=== PATIENT | male | born 1950 | race Caucasian/White ===

== ENCOUNTER 2017-11-30 18:53 | Inpatient (IN) | payer MEDICARE, BC ==
[2017-11-30] VITALS (7 sets, daily range): BP systolic 84–168; BP diastolic 55–100
[~2017-11-30] VITALS: Ht 175.3 cm; Wt 81.4 kg
[~2017-11-30 18:53] MED LIST: enoxaparin 100mg/ml syringe ONE; enoxaparin 30mg/0.3ml syringe ONE; heparin 10,000 units/1 ML INJ ONE; heparin, porcine/D5W 25,000 units/250ml premix IV ONE; methylPREDNISolone sod succ 125mg/2ml vial ONE; nitroGLYCERIN in D5W 50mg/250ml (Tridil) infusion IV ONE
[2017-11-30] MEDS ORDERED: aspirin 81mg tab.chew PO ONE ×3 (19:05→19:10)
[2017-11-30] MEDS ORDERED: ondansetron/PF 4mg/2ml inj IV ONE (19:05)
[2017-11-30] MEDS ORDERED: normal saline 500ml IV soln 1,000 ML IV ONE (19:05)
[2017-11-30] MEDS ORDERED: heparin 10,000 units/1 ML INJ IV PRN ×2 (19:10→19:22)
[2017-11-30] MEDS ORDERED: heparin 10,000 units/1 ML INJ IV ONE (19:10)
[2017-11-30 19:18] LABS: BASOPHILS % (AUTO) 0.3 % (0-1); EOSINOPHILS # (AUTO) 0.3 X10'3 (0-0.9); EOSINOPHILS % (AUTO) 2.2 % (0-6); HEMATOCRIT 43.9 % (42.0-52.0); HEMOGLOBIN 14.8 g/dl (14.0-17.9); LYMPHOCYTES # (AUTO) 3.1 X10'3 (1.1-4.8); LYMPHOCYTES % (AUTO) 23.3 % (21-51); MEAN CORPUSCULAR HEMOGLOBIN 31.2 PG (27.0-31.0); MEAN CORPUSCULAR HGB CONC 33.8 % (33.0-36.5); MEAN CORPUSCULAR VOLUME 92.2 FL (78-98); MEAN PLATELET VOLUME 7.4 FL (7.4-10.4); MONOCYTES # (AUTO) 1.2 X10'3 (0-0.9); MONOCYTES % (AUTO) 9.1 % (2-12); NEUTROPHILS # (AUTO) 8.6 X10'3 (1.8-7.7); NEUTROPHILS % (AUTO) 65.1 % (42-75); PLATELET COUNT 283 X10'3 (140-440); RED BLOOD COUNT 4.75 X10'6 (4.70-6.10); RED CELL DISTRIBUTION WIDTH 13.3 % (11.5-14.5); WHITE BLOOD COUNT 13.2 X10'3 (4.5-11.0)
[2017-11-30] MEDS: nitroGLYCERIN 0.4mg SUBLingual tab SL PRN ×2 (19:26→19:30)
[2017-11-30] MEDS ORDERED: LIDOcaine 1% 30ml preserv. free vial ONE (19:29)
[2017-11-30] MEDS ORDERED: heparin 1,000unit/ml 10ml vial 10 ML ONE (19:29)
[2017-11-30] MEDS ORDERED: iohexol 350MG/ML 100ml bottle IV ONE ×2 (19:30→20:17)
[2017-11-30 19:31] LABS: PARTIAL THROMBOPLASTIN TIME 25 SECONDS (22-32)
[2017-11-30] MEDS ORDERED: ASPI-1265 PO (19:33)
[2017-11-30] MEDS ORDERED: IRBE75TA30 PO (19:33)
[2017-11-30 19:45] LABS: ALANINE AMINOTRANSFERASE 34 U/L (12-78); ALBUMIN 3.8 G/DL (3.4-5.0); ALKALINE PHOSPHATASE 85 IU/L (46-116); ANION GAP 12 (8-16); ASPARTATE AMINO TRANSFERASE 22 U/L (10-37); BILIRUBIN,TOTAL 0.4 MG/DL (0.1-1.0); BLOOD UREA NITROGEN 21 MG/DL (7-18); BUN/CREATININE RATIO 14.5 (5.4-32.0); CALCIUM 9.1 MG/DL (8.5-10.1); CHLORIDE 108 MMOL/L (99-107); CREATININE 1.45 MG/DL (0.60-1.10); GLUCOSE 161 MG/DL (70-104); MAGNESIUM 2.3 MG/DL (1.5-2.4); POTASSIUM 4.1 MMOL/L (3.5-5.1); SODIUM 144 MMOL/L (135-145); TOTAL CARBON DIOXIDE 23.9 MMOL/L (24-32); TOTAL PROTEIN 7.7 G/DL (6.4-8.2); eGFR 48 ML/MIN
[2017-11-30] MEDS ORDERED: midazolam 2 mg/2 ml injection ONE ×2 (20:03→20:33)
[2017-11-30] MEDS ORDERED: fentaNYL/PF 50MCG/1 ML 2ML syringe ONE (20:14)
[2017-11-30] MEDS ORDERED: ticagrelor 90mg tablet ONE (20:49)
[2017-11-30] MEDS ORDERED: ondansetron/PF 4mg/2ml inj ONE (21:36)
[2017-11-30] MEDS ORDERED: atorvastatin 20mg tablet PO SCH (22:29)
[2017-11-30] MEDS ORDERED: ondansetron/PF 4mg/2ml inj IV PRN ×2 (22:30→23:45)
[2017-11-30] MEDS ORDERED: HYDROcodone/acetaminophen 5mg/325mg tablet PO PRN (22:30)
[2017-11-30] MEDS ORDERED: HYDROcodone/acetaminophen 10/325mg tab PO PRN (22:30)
[2017-11-30] MEDS ORDERED: proCHLORperazine 10 MG/2 ml inj IV PRN (22:30)
[2017-11-30] MEDS ORDERED: OXAZEpam 15mg capsule PO PRN (22:30)
[2017-11-30] MEDS ORDERED: acetaminophen 325mg tablet PO PRN ×2 (23:45)
[2017-11-30] MEDS ORDERED: morphine 4 MG/ML inj SYRINge IV PRN (23:45)
[2017-12-01] VITALS (7 sets, daily range): BP systolic 119–147; BP diastolic 67–96
[2017-12-01] MEDS: famotidine 20mg tablet PO SCH ×2 (04:12→20:51)
[2017-12-01 05:14] LABS: BASOPHILS # (AUTO) 0.2 X10'3 (0-0.2); BASOPHILS % (AUTO) 1.1 % (0-1); EOSINOPHILS # (AUTO) 0.2 X10'3 (0-0.9); EOSINOPHILS % (AUTO) 1.4 % (0-6); HEMATOCRIT 38.7 % (42.0-52.0); HEMOGLOBIN 13.2 g/dl (14.0-17.9); LYMPHOCYTES # (AUTO) 0.8 X10'3 (1.1-4.8); MEAN CORPUSCULAR HEMOGLOBIN 31.5 PG (27.0-31.0); MEAN CORPUSCULAR VOLUME 92.6 FL (78-98); MEAN PLATELET VOLUME 7.4 FL (7.4-10.4); MONOCYTES # (AUTO) 0.9 X10'3 (0-0.9); MONOCYTES % (AUTO) 5.7 % (2-12); NEUTROPHILS # (AUTO) 13.5 X10'3 (1.8-7.7); NEUTROPHILS % (AUTO) 86.8 % (42-75); PLATELET COUNT 234 X10'3 (140-440); RED BLOOD COUNT 4.18 X10'6 (4.70-6.10); RED CELL DISTRIBUTION WIDTH 13.7 % (11.5-14.5); WHITE BLOOD COUNT 15.6 X10'3 (4.5-11.0)
[2017-12-01 05:52] LABS: ALBUMIN 3.2 G/DL (3.4-5.0); ANION GAP 10 (8-16); BLOOD UREA NITROGEN 17 MG/DL (7-18); BUN/CREATININE RATIO 13.6 (5.4-32.0); CALCIUM 8.5 MG/DL (8.5-10.1); CHLORIDE 109 MMOL/L (99-107); CHOL/HDL RATIO 4.6 (0.00-4.99); CHOLESTEROL 221 MG/DL (0-200); CREATININE 1.25 MG/DL (0.60-1.10); GLUCOSE 145 MG/DL (70-104); HDL CHOLESTEROL 48 MG/DL (35-60); LDL CHOLESTEROL 155 MG/DL (50-100); POTASSIUM 4.8 MMOL/L (3.5-5.1); SODIUM 143 MMOL/L (135-145); TOTAL CARBON DIOXIDE 23.8 MMOL/L (24-32); TRIGLYCERIDES 40 MG/DL (20-135); eGFR 57 ML/MIN
[2017-12-01] MEDS ORDERED: magnesium 2GM in 50ml NS 50 ML IV ONE (06:50)
[2017-12-01] MEDS ORDERED: IRBE75TA9 PO (07:59)
[2017-12-01] MEDS: ticagrelor 90mg tablet PO SCH ×2 (08:34→20:51)
[2017-12-01] MEDS: metoprolol tartrate 25mg tablet PO SCH ×2 (08:34→20:51)
[2017-12-01] MEDS: losartan 25mg tablet PO SCH (09:12)
[2017-12-01] MEDS: aspirin 81mg tablet.DR PO SCH (09:12)
[2017-12-01] MEDS ORDERED: CHOL2000 PO (18:53)
[2017-12-01] MEDS ORDERED: atorvastatin 20mg tablet PO SCH (21:00)
[2017-12-02 03:00] VITALS: BP 121/96
[2017-12-02 06:00] VITALS: BP 148/79
[2017-12-02] MEDS ORDERED: METO25TA6 PO (06:45)
[2017-12-02] MEDS ORDERED: TICA90TA PO (06:45)
[2017-12-02] MEDS ORDERED: ATOR40TA PO (06:45)
[2017-12-02] MEDS ORDERED: NITR0.4T51 SL (06:45)
[2017-12-02] MEDS: losartan 25mg tablet PO SCH (07:09)
[2017-12-02] MEDS: famotidine 20mg tablet PO SCH (07:09)
[2017-12-02] MEDS: metoprolol tartrate 25mg tablet PO SCH (07:09)
[2017-12-02] MEDS: aspirin 81mg tablet.DR PO SCH (07:09)
[2017-12-02] MEDS: ticagrelor 90mg tablet PO SCH (07:09)
[2017-12-02 09:08] LABS: BASOPHILS % (AUTO) 0.1 % (0-1); EOSINOPHILS % (AUTO) 0.1 % (0-6); HEMATOCRIT 39.3 % (42.0-52.0); HEMOGLOBIN 13.3 g/dl (14.0-17.9); LYMPHOCYTES # (AUTO) 1.5 X10'3 (1.1-4.8); LYMPHOCYTES % (AUTO) 10.4 % (21-51); MEAN CORPUSCULAR HEMOGLOBIN 31.2 PG (27.0-31.0); MEAN CORPUSCULAR HGB CONC 33.8 % (33.0-36.5); MEAN CORPUSCULAR VOLUME 92.3 FL (78-98); MEAN PLATELET VOLUME 7.6 FL (7.4-10.4); MONOCYTES # (AUTO) 1.4 X10'3 (0-0.9); MONOCYTES % (AUTO) 9.3 % (2-12); NEUTROPHILS # (AUTO) 11.6 X10'3 (1.8-7.7); NEUTROPHILS % (AUTO) 80.1 % (42-75); PLATELET COUNT 233 X10'3 (140-440); RED BLOOD COUNT 4.26 X10'6 (4.70-6.10); RED CELL DISTRIBUTION WIDTH 13.5 % (11.5-14.5); WHITE BLOOD COUNT 14.5 X10'3 (4.5-11.0)
[2017-12-02 09:18] LABS: ANION GAP 11 (8-16); BLOOD UREA NITROGEN 14 MG/DL (7-18); BUN/CREATININE RATIO 11.1 (5.4-32.0); CALCIUM 8.6 MG/DL (8.5-10.1); CHLORIDE 106 MMOL/L (99-107); CREATININE 1.26 MG/DL (0.60-1.10); GLUCOSE 130 MG/DL (70-104); POTASSIUM 3.7 MMOL/L (3.5-5.1); SODIUM 140 MMOL/L (135-145); TOTAL CARBON DIOXIDE 22.9 MMOL/L (24-32); eGFR 57 ML/MIN
== END 2017-12-02 10:40 | disposition home or self-care (01) | DRG 246 ==
LOC: ER 18:53 → PCU 3S 22:11
PROVIDERS: ADMIT Internal Medicine Interventional Cardiology; ATTEND Internal Medicine Interventional Cardiology
PROC: 027034Z Dilation of Coronary Artery, One Artery with Drug-eluting Intraluminal Device, Percutaneous Approach (ICD-10-PCS; principal; 2017-11-30)
PROC: 4A023N7 Measurement of Cardiac Sampling and Pressure, Left Heart, Percutaneous Approach (ICD-10-PCS; 2017-11-30)
PROC: B2111ZZ Fluoroscopy of Multiple Coronary Arteries using Low Osmolar Contrast (ICD-10-PCS; 2017-11-30)
PROC: B2151ZZ Fluoroscopy of Left Heart using Low Osmolar Contrast (ICD-10-PCS; 2017-11-30)
PROC: B2131ZZ Fluoroscopy of Multiple Coronary Artery Bypass Grafts using Low Osmolar Contrast (ICD-10-PCS; 2017-11-30)
DX: I21.19 ST elevation (STEMI) myocardial infarction involving other coronary artery of inferior wall (principal); I50.31 Acute diastolic (congestive) heart failure; I47.2 Ventricular tachycardia; I13.0 Hypertensive heart and chronic kidney disease with heart failure and stage 1 through stage 4 chronic kidney disease, or unspecified chronic kidney disease; I25.10 Atherosclerotic heart disease of native coronary artery without angina pectoris; E78.5 Hyperlipidemia, unspecified; J45.909 Unspecified asthma, uncomplicated; N18.9 Chronic kidney disease, unspecified; J98.6 Disorders of diaphragm; F12.90 Cannabis use, unspecified, uncomplicated; I25.2 Old myocardial infarction; Z95.1 Presence of aortocoronary bypass graft; Z79.82 Long term (current) use of aspirin; Z79.899 Other long term (current) drug therapy; Z87.891 Personal history of nicotine dependence; Z82.49 Family history of ischemic heart disease and other diseases of the circulatory system; Z82.5 Family history of asthma and other chronic lower respiratory diseases
CPT/HCPCS: 93306; 93459; 96374; 96375; 99291; C9606; 36415; 71045; 80048; 80053; 80061; 83735; 83880; 84484; 85025; 85610; 85730; 87070; 93005; 99152; 99153; A4620; A6257; C1725; C1760; C1769; C1874; J0780; J1644; J1650; J2250; J2405; J2930; J3010; J3475; J3490; J7030; Q9967

== ENCOUNTER 2017-12-09 10:03 | Emergency (ER) | payer MEDICARE, BC ==
[~2017-12-09] VITALS: Ht 175.3 cm; Wt 80.0 kg
[~2017-12-09 10:03] MED LIST changes: +ASPI-1265 PO; +ATOR40TA PO; +CHOL2000 PO; +IRBE75TA9 PO; +METO25TA6 PO; +NITR0.4T51 SL; +TICA90TA PO; -enoxaparin 100mg/ml syringe ONE; -enoxaparin 30mg/0.3ml syringe ONE; -heparin 10,000 units/1 ML INJ ONE; -heparin, porcine/D5W 25,000 units/250ml premix IV ONE; -methylPREDNISolone sod succ 125mg/2ml vial ONE; -nitroGLYCERIN in D5W 50mg/250ml (Tridil) infusion IV ONE
[2017-12-09 10:32] LABS: BASOPHILS # (AUTO) 0.1 X10'3 (0-0.2); BASOPHILS % (AUTO) 0.6 % (0-1); EOSINOPHILS # (AUTO) 0.4 X10'3 (0-0.9); EOSINOPHILS % (AUTO) 3.8 % (0-6); HEMATOCRIT 41.1 % (42.0-52.0); HEMOGLOBIN 14.1 g/dl (14.0-17.9); LYMPHOCYTES # (AUTO) 1.6 X10'3 (1.1-4.8); LYMPHOCYTES % (AUTO) 16.8 % (21-51); MEAN CORPUSCULAR HEMOGLOBIN 31.3 PG (27.0-31.0); MEAN CORPUSCULAR HGB CONC 34.2 % (33.0-36.5); MEAN CORPUSCULAR VOLUME 91.4 FL (78-98); MEAN PLATELET VOLUME 7.2 FL (7.4-10.4); MONOCYTES % (AUTO) 10.5 % (2-12); NEUTROPHILS # (AUTO) 6.5 X10'3 (1.8-7.7); NEUTROPHILS % (AUTO) 68.3 % (42-75); PLATELET COUNT 320 X10'3 (140-440); WHITE BLOOD COUNT 9.6 X10'3 (4.5-11.0)
[2017-12-09 10:43] LABS: PARTIAL THROMBOPLASTIN TIME 28 SECONDS (22-32); PROTHROMBIN TIME 10.1 SECONDS (9.0-12.0)
[2017-12-09 10:46] LABS: ALANINE AMINOTRANSFERASE 35 U/L (12-78); ALBUMIN 3.5 G/DL (3.4-5.0); ALBUMIN/GLOBULIN RATIO 0.9 (1.1-1.5); ALKALINE PHOSPHATASE 91 IU/L (46-116); ANION GAP 8 (8-16); ASPARTATE AMINO TRANSFERASE 19 U/L (10-37); BILIRUBIN,TOTAL 0.5 MG/DL (0.1-1.0); BLOOD UREA NITROGEN 22 MG/DL (7-18); BUN/CREATININE RATIO 17.2 (5.4-32.0); CALCIUM 9.1 MG/DL (8.5-10.1); CHLORIDE 105 MMOL/L (99-107); CREATININE 1.28 MG/DL (0.60-1.10); GLUCOSE 118 MG/DL (70-104); POTASSIUM 4.3 MMOL/L (3.5-5.1); SODIUM 140 MMOL/L (135-145); TOTAL CARBON DIOXIDE 26.8 MMOL/L (24-32); TOTAL PROTEIN 7.2 G/DL (6.4-8.2); eGFR 56 ML/MIN
[2017-12-09] MEDS ORDERED: aspirin 81mg tab.chew PO ONE (11:55)
[2017-12-09 14:52] VITALS: BP 121/78
== END 2017-12-09 14:53 | disposition home or self-care (01) ==
LOC: ER 10:04
DX: R55 Syncope and collapse (principal); I95.9 Hypotension, unspecified; R42 Dizziness and giddiness; R07.9 Chest pain, unspecified; I25.10 Atherosclerotic heart disease of native coronary artery without angina pectoris; Z79.82 Long term (current) use of aspirin; Z79.899 Other long term (current) drug therapy; Z95.1 Presence of aortocoronary bypass graft
CPT/HCPCS: 36415; 71045; 80053; 84484; 85025; 85610; 85730; 93005; 99285; J7030

== ENCOUNTER 2021-07-31 12:30 | Day surgery (SDC) | payer MEDICARE, BC ==
[2021-07-31] VITALS (7 sets, daily range): BP systolic 125–138; BP diastolic 76–88
[~2021-07-31] VITALS: Ht 175.3 cm; Wt 82.8 kg
[~2021-07-31 12:30] MED LIST changes: +IRBE75TA8 PO; -IRBE75TA9 PO; +LOP25T PO; -METO25TA6 PO
[2021-07-31] MEDS ORDERED: LORazepam 0.5 MG tablet PO PRN (12:55)
[2021-07-31] MEDS ORDERED: normal saline 1,000 ML IV SCH (12:55)
[2021-07-31] MEDS ORDERED: diphenhydrAMINE 25mg capsule PO PRN (12:55)
[2021-07-31] MEDS ORDERED: ISOS30TA84 PO (13:03)
[2021-07-31] MEDS ORDERED: EVOL140P3 SQ (13:03)
[2021-07-31] MEDS ORDERED: PANT40TA54 PO (13:03)
[2021-07-31] MEDS ORDERED: METO50TA17 PO (13:03)
[2021-07-31] MEDS ORDERED: CHLO25TA10 PO (13:03)
[2021-07-31] MEDS ORDERED: POTA-188 PO (13:03)
[2021-07-31] MEDS ORDERED: LIDOcaine 1% (10mg/ml)w/preservative injection 20ml MDV ONE (14:34)
[2021-07-31] MEDS ORDERED: heparin 1,000unit/ml 10ml vial 10 ML ONE (14:34)
[2021-07-31] MEDS ORDERED: verapamil 2.5 mg/ml inj IV ONE (14:34)
[2021-07-31] MEDS ORDERED: nitroGLYCERIN-Tridil 50MG/D5W 250 ML IV ONE (14:35)
[2021-07-31] MEDS ORDERED: iohexol 350MG/ML 100ml bottle IV ONE (14:35)
[2021-07-31] MEDS ORDERED: fentaNYL/PF 50MCG/1 ML 2ML syringe ONE (15:02)
[2021-07-31] MEDS ORDERED: midazolam 1 mg/ML 2ml injection ONE (15:02)
[2021-07-31] MEDS ORDERED: iohexol 350 MG/ML 50ML vial IV ONE (15:22)
[2021-07-31] MEDS ORDERED: HYDROcodone/acetaminophen 10/325mg tab PO PRN (16:25)
[2021-07-31] MEDS ORDERED: HYDROcodone/acetaminophen 5mg/325mg tablet PO PRN (16:25)
[2021-07-31] MEDS ORDERED: OXAZEpam 15mg capsule PO PRN (16:25)
[2021-07-31] MEDS ORDERED: ondansetron/PF 4mg/2ml inj IV PRN (16:25)
[2021-07-31] MEDS ORDERED: proCHLORperazine 10 MG/2 ml inj IV PRN (16:25)
== END 2021-07-31 19:20 | disposition home or self-care (01) ==
LOC: SSTAY O 12:30
PROVIDERS: ATTEND Internal Medicine Interventional Cardiology
DX: R07.89 Other chest pain (principal); I25.7 Atherosclerosis of coronary artery bypass graft(s) and coronary artery of transplanted heart with angina pectoris; J45.909 Unspecified asthma, uncomplicated; I25.2 Old myocardial infarction; I10 Essential (primary) hypertension; E78.5 Hyperlipidemia, unspecified; I65.29 Occlusion and stenosis of unspecified carotid artery; G89.29 Other chronic pain; Z95.0 Presence of cardiac pacemaker; Z79.82 Long term (current) use of aspirin; Z79.899 Other long term (current) drug therapy; Z95.1 Presence of aortocoronary bypass graft; Z95.5 Presence of coronary angioplasty implant and graft; Z88.8 Allergy status to other drugs, medicaments and biological substances; Z87.891 Personal history of nicotine dependence
CPT/HCPCS: 93005; 93459; 99152; 99153; C1769; J1644; J2250; J3010; J3490; J7030; Q0163; Q9967; A4620; A6258

== ENCOUNTER 2022-06-05 05:41 | Inpatient (IN) | payer MEDICARE, BC ==
[2022-06-03 12:39] LABS: BASOPHILS # (AUTO) 0.1 X10'3 (0-0.2); BASOPHILS % (AUTO) 0.7 % (0-1); EOSINOPHILS # (AUTO) 0.2 X10'3 (0-0.9); EOSINOPHILS % (AUTO) 2.7 % (0-6); LYMPHOCYTES # (AUTO) 1.7 X10'3 (1.1-4.8); LYMPHOCYTES % (AUTO) 20.3 % (21-51); MEAN CORPUSCULAR HEMOGLOBIN 30.9 PG (27.0-31.0); MEAN CORPUSCULAR HGB CONC 32.6 g/dL (33.0-36.5); MEAN CORPUSCULAR VOLUME 94.9 FL (78-98); MEAN PLATELET VOLUME 7.9 FL (7.4-10.4); MONOCYTES # (AUTO) 1.2 X10'3 (0-0.9); MONOCYTES % (AUTO) 14.5 % (2-12); NEUTROPHILS # (AUTO) 5.2 X10'3 (1.8-7.7); NEUTROPHILS % (AUTO) 61.8 % (42-75); PRE OP HEMATOCRIT 44.8 % (42.0-52.0); PRE OP HEMOGLOBIN 14.6 g/dL (14.0-17.9); PRE OP PLATELET COUNT 254 X10'3 (140-440); RED BLOOD COUNT 4.72 X10'6 (4.70-6.10); RED CELL DISTRIBUTION WIDTH 13.5 % (11.5-14.5)
[2022-06-03 12:43] LABS: CLARITY,URINE CLEAR (Clear); COLOR,URINE YELLOW (Yellow); GLUCOSE, URINE NEGATIVE (Neg); KETONES,URINE NEGATIVE (Neg); LEUKOCYTE ESTERASE ,URINE NEGATIVE (Neg); NITRITES, URINE NEGATIVE (Neg); OCCULT BLOOD,URINE SMALL (Neg); PH,URINE 5.5 (4.8-8.0); PROTEIN,URINE NEGATIVE (Neg); UROBILINOGEN,URINE 0.2 E.U/dL (0.2-1.0)
[2022-06-03 12:49] LABS: ALBUMIN 3.8 G/DL (3.4-5.0); ALBUMIN/GLOBULIN RATIO 1.1 (1.1-1.5); ALKALINE PHOSPHATASE 77 IU/L (46-116); BLOOD UREA NITROGEN 23 MG/DL (7-18); CALCIUM 9.1 MG/DL (8.5-10.1); CHLORIDE 109 MMOL/L (99-107); CREATININE 1.44 MG/DL (0.60-1.10); PRE OP ALT 23 U/L (30-65); PRE OP ANION GAP 6 (8-16); PRE OP AST 14 U/L (10-37); PRE OP BILIRUB, TOTAL 0.3 MG/DL (0.0-1.0); PRE OP GLUCOSE 96 MG/DL (70-104); PRE OP SODIUM 144 MMOL/L (135-145); TOTAL PROTEIN 7.4 G/DL (6.4-8.2); eGFR 48 ML/MIN
[2022-06-03 12:51] LABS: UA COLLECTION TYPE CLN CATCH MIDSTREAM
[2022-06-03 12:53] LABS: BACTERIA,URINE NONE SEEN /HPF (Neg); MUCUS STRANDS NONE SEEN /LPF (Neg); SQUAMOUS EPITHELIAL CELL,UR FEW /LPF (FEW); WBC,URINE 0-4 /HPF (0-4)
[~2022-06-05] VITALS: Ht 175.3 cm; Wt 81.2 kg
[2022-06-05] VITALS (68 sets, daily range): BP systolic 115–200; BP diastolic 71–110
[~2022-06-05 05:41] MED LIST changes: -ATOR40TA PO; -CHOL2000 PO; +CHOL50004 PO; +DOCUMENT DATE & TIME OF BETA-BLOCKER PO ONE; +EVOL140P3 SQ; -IRBE75TA8 PO; -LOP25T PO; +LOSA25TA41 PO; +METO50TA17 PO; -NITR0.4T51 SL; +PANT40TA54 PO; -TICA90TA PO; +ceFAZolin inj. 2,000 MG in dextrose 5%-water 100 ML IV ONE; +famotidine 20mg tablet PO ONE
[2022-06-05] MEDS ORDERED: BUPIVAcaine/PF 2.5 mg/ml (0.25%) 30ml vial ONE (06:37)
[2022-06-05] MEDS: ringers solution, lacted 1,000 ML IV SCH (06:48)
[2022-06-05] MEDS ORDERED: fentaNYL/PF 50MCG/1 ML 2ML syringe ONE ×2 (07:25→09:37)
[2022-06-05] MEDS ORDERED: LIDOcaine 2% (20mg/ml) 5ml vial ONE (07:28)
[2022-06-05] MEDS ORDERED: rocuronium 10mg/ml inj IV ONE (07:28)
[2022-06-05] MEDS ORDERED: propofol inj 20 ML IV ONE (07:28)
[2022-06-05] MEDS ORDERED: HYDROmorphone/PF 0.2 MG/ML SYRINGE IV PRN ×2 (07:35)
[2022-06-05] MEDS ORDERED: ringers solution, lacted 1,000 ML IV SCH (07:35)
[2022-06-05] MEDS ORDERED: ondansetron/PF 4mg/2ml inj IV PRN ×2 (07:35→19:15)
[2022-06-05] MEDS ORDERED: sevoflurane 250ml liquid IH ONE (07:53)
[2022-06-05] MEDS ORDERED: acetaminophen 1000 MG/100ml vial IV ONE (07:53)
--- NOTE | 2022-06-05 09:53 | NUR ---
Received from OR via [facility]O, accompanied by Anesthesiologist ELEANOR and report given by Anesthesiolgist. PT ARRIVES AROUSABLE TO VERBAL STIMULI, WITH NO COMPLAINTS OF PAIN, RESTING BETWEEN CARE ON 6L SIMPLE MASK. 3 INCISIONAL SITES AT MID ABDOMEN DRY AND INTACT WITH DERMABOND. AAOX4. Addendum: 06/05/22 at 1010 by Robert Loera RN Amended: Links added.
[2022-06-05] MEDS ORDERED: ondansetron/PF 4mg/2ml inj ONE (10:02)
[2022-06-05] MEDS ORDERED: glycopyrrolate 0.2mg/ml inj ONE (10:02)
[2022-06-05] MEDS ORDERED: neostigmine methylsulfate 1 MG/ML 10ml vial ONE (10:02)
[2022-06-05] MEDS ORDERED: labetalol 20mg/4ml (5mg/ml) syringe IV ONE ×2 (10:02→16:30)
[2022-06-05] MEDS ORDERED: dexamethasone sod phosphate 4mg/ml inj. ONE (10:02)
[2022-06-05] MEDS ORDERED: phenylephrine 10mg/ml inj. ONE (10:02)
[2022-06-05] MEDS ORDERED: LIDOcaine 2% 10ml TOPICAL JELLY (Urojet) TP ONE (15:25)
--- NOTE | 2022-06-05 16:00 | NUR ---
PT UNABLE TO PROVIDE URINE VOLUNTARILY AT THIS TIME. PT STANDING AT BEDSIDE MULTIPLE TIMES TO ATTEMPT VOIDING, STEADY ON FEET. CASH CATHETER PLACED PER STANDING MD STANDING ORDER. PT AGREEABLE. F/C PLACED WITHOUT INCIDENT WITH CLEAR YELLOW OUTPUT. APPROX 500 ML OUT UPON PLACEMENT. Addendum: 06/05/22 at 2139 by Robert Loera RN Amended: Links added.
--- NOTE | 2022-06-05 16:01 | NUR ---
PT PROVIDED CASH CATHETER INSTRUCTIONS, VERBAL AND WRITTEN. PT VERBALIZED UNDERSTANDING AND THAT F/C NEEDS REMOVAL VIA FOLLOW UP IN 48 HOURS PER ORDER. Addendum: 06/05/22 at 2140 by Robert Loera RN Amended: Links added.
--- NOTE | 2022-06-05 16:20 | NUR ---
DR. WEBSTER NOTIFIED OF PT BP. MEDICATIONS ORDERED. Addendum: 06/05/22 at 1827 by Robert Loera RN Amended: Links added.
[2022-06-05] MEDS ORDERED: hydrALAZINE 20mg/ml inj. IV ONE (16:30)
[2022-06-05] MEDS: morphine 2 MG/ML inj. syringe IV PRN ×2 (17:10→18:29)
--- NOTE | 2022-06-05 19:00 | NUR ---
PT COMPLAINT OF INCREASED CHEST PAIN. NOTIFIED. EKG, TROP AND MED ORDER TO FOLLOW. HYDRAULIC MINER BLASTING NOTIFIED OF ADMISSION. FOAM RUBBER MOLDER FOR TROP DRAW AND ENGINE MANAGER AT BEDSIDE. Addendum: 06/05/22 at 1917 by Robert Loera RN Amended: Links added.
[2022-06-05] MEDS ORDERED: metoprolol tartrate 1mg/ml inj IV ONE (19:05)
[2022-06-05] MEDS ORDERED: morphine 2 MG/ML inj. syringe IV PRN ×3 (19:15→23:00)
[2022-06-05] MEDS ORDERED: acetaminophen 325mg tablet PO PRN ×2 (19:15)
[2022-06-05] MEDS ORDERED: HYDROcodone/acetaminophen 5mg/325mg tablet PO PRN (19:15)
[2022-06-05] MEDS ORDERED: mag hydrox/Alum hydrox/simeth 30ml oral suspension PO PRN (19:15)
[2022-06-05] MEDS ORDERED: metoclopramide 5 mg/ml inj IV PRN (19:15)
[2022-06-05] MEDS ORDERED: magnesium hydroxide 30ml (MOM) UD suspension PO PRN (19:15)
[2022-06-05] MEDS ORDERED: HYDROcodone/acetaminophen 10/325mg tab PO PRN (19:15)
[2022-06-05] MEDS ORDERED: nitroGLYCERIN 0.4mg SUBLingual tab SL PRN (19:15)
[2022-06-05 19:45] LABS: ALBUMIN 3.5 G/DL (3.4-5.0); ANION GAP 13 (8-16); BLOOD UREA NITROGEN 22 MG/DL (7-18); BUN/CREATININE RATIO 13.4 (5.4-32.0); CALCIUM 8.8 MG/DL (8.5-10.1); CHLORIDE 105 MMOL/L (99-107); CREATININE 1.64 MG/DL (0.60-1.10); GLUCOSE 156 MG/DL (70-104); POTASSIUM 3.9 MMOL/L (3.5-5.1); SODIUM 139 MMOL/L (135-145); TOTAL CARBON DIOXIDE 20.9 MMOL/L (24-32); eGFR 41 ML/MIN
[2022-06-05 19:58] LABS: BASOPHILS % (AUTO) 0.2 % (0-1); EOSINOPHILS % (AUTO) 0 % (0-6); HEMOGLOBIN 14.1 g/dl (14.0-17.9); LYMPHOCYTES # (AUTO) 0.7 X10'3 (1.1-4.8); LYMPHOCYTES % (AUTO) 4.5 % (21-51); MEAN CORPUSCULAR HEMOGLOBIN 31.2 PG (27.0-31.0); MEAN CORPUSCULAR HGB CONC 32.8 g/dL (33.0-36.5); MEAN CORPUSCULAR VOLUME 94.9 FL (78-98); MEAN PLATELET VOLUME 7.9 FL (7.4-10.4); MONOCYTES # (AUTO) 0.5 X10'3 (0-0.9); MONOCYTES % (AUTO) 2.9 % (2-12); NEUTROPHILS # (AUTO) 14.8 X10'3 (1.8-7.7); NEUTROPHILS % (AUTO) 92.4 % (42-75); PLATELET COUNT 228 X10'3 (140-440); RED BLOOD COUNT 4.54 X10'6 (4.70-6.10); RED CELL DISTRIBUTION WIDTH 13.3 % (11.5-14.5)
--- NOTE | 2022-06-05 20:43 | NUR ---
Report called to receiving nurse PEPITO RN (DAVIE WILL BE PRIMARY). Transferred via GURNEY AND PT PROVIDED HOSPITAL BED UPON ARRIVAL TO ROOM 3028A. Belongings BROUGHT TO PT'S ROOM, AND RN TO RN DONE. VSS, PAIN CONTROLLED UPON DEPARTURE FROM RR. HOSPITAL BED IN LOW POSITION AND RN AT BEDSIDE UPON HANDOFF OF PT. . Special Issues communicated to receiving nurse ABOUT HOSPITALIST NEEDING TO SEE PT, MESSAGE RELAYED. MULTITUDE OF PT'S QUESTIONS ADDRESSED BEST TO RN'S ABILITY. OPPORTUNITY FOR MD/PATIENT TO TALK ON THE PHONE PROVIDED, PRIOR TO DEPARTURE FROM . Addendum: 06/05/22 at 2132 by Robert Loera RN Amended: Links added.
[2022-06-05] MEDS: docusate sod 100mg capsule PO SCH (21:10)
[2022-06-06 02:00] VITALS: BP 136/78
[2022-06-06 07:50] LABS: BASOPHILS % (AUTO) 0.2 % (0-1); EOSINOPHILS % (AUTO) 0 % (0-6); HEMATOCRIT 39.4 % (42.0-52.0); HEMOGLOBIN 13.1 g/dl (14.0-17.9); LYMPHOCYTES # (AUTO) 1.3 X10'3 (1.1-4.8); LYMPHOCYTES % (AUTO) 7.5 % (21-51); MEAN CORPUSCULAR HEMOGLOBIN 31.5 PG (27.0-31.0); MEAN CORPUSCULAR HGB CONC 33.3 g/dL (33.0-36.5); MEAN CORPUSCULAR VOLUME 94.4 FL (78-98); MEAN PLATELET VOLUME 7.4 FL (7.4-10.4); MONOCYTES # (AUTO) 1.8 X10'3 (0-0.9); MONOCYTES % (AUTO) 10.1 % (2-12); NEUTROPHILS # (AUTO) 14.5 X10'3 (1.8-7.7); NEUTROPHILS % (AUTO) 82.2 % (42-75); PLATELET COUNT 230 X10'3 (140-440); RED BLOOD COUNT 4.17 X10'6 (4.70-6.10); RED CELL DISTRIBUTION WIDTH 13.5 % (11.5-14.5); WHITE BLOOD COUNT 17.6 X10'3 (4.5-11.0)
[2022-06-06] MEDS ORDERED: aspirin 81mg tab.chew PO SCH (08:00)
[2022-06-06] MEDS ORDERED: non-formulary drug (Cholecalciferol (Vitamin D3) (Vitamin D3) 1 CAP) PO SCH (08:00)
[2022-06-06] MEDS ORDERED: losartan 25mg tablet PO SCH (08:00)
[2022-06-06] MEDS ORDERED: aspirin 81mg, enteric-coated 1 TAB TABLET.DR PO SCH (08:00)
[2022-06-06] MEDS ORDERED: metoprolol tartrate 50mg tablet PO SCH (08:00)
[2022-06-06] MEDS ORDERED: pantoprazole 40mg Tablet.DR PO SCH (08:00)
[2022-06-06 08:12] LABS: ALBUMIN 3.1 G/DL (3.4-5.0); ANION GAP 8 (8-16); BLOOD UREA NITROGEN 20 MG/DL (7-18); BUN/CREATININE RATIO 14.4 (5.4-32.0); CALCIUM 8.6 MG/DL (8.5-10.1); CHLORIDE 108 MMOL/L (99-107); CREATININE 1.39 MG/DL (0.60-1.10); GLUCOSE 114 MG/DL (70-104); POTASSIUM 4.6 MMOL/L (3.5-5.1); SODIUM 142 MMOL/L (135-145); TOTAL CARBON DIOXIDE 25.8 MMOL/L (24-32); eGFR 50 ML/MIN
[2022-06-06] MEDS: ringers solution, lacted 1,000 ML IV SCH ×2 (08:12→08:26)
--- NOTE | 2022-06-06 08:20 | NUR ---
Doctor Sole informed of patient's Troponin level at 271 via the phone. No further advice given. Will continue to monitor. Patient is asymptomatic. No chest pain.
[2022-06-06 08:30] VITALS: BP 182/92
[2022-06-06 08:59] VITALS: BP 182/93
[2022-06-06] MEDS: docusate sod 100mg capsule PO SCH (09:02)
[2022-06-06 11:18] VITALS: BP 135/75
[2022-06-06] MEDS ORDERED: cholecalciferol (vitamin D3) 1,000 unit (25mcg) tablet PO SCH ×2 (13:09→13:10)
[2022-06-06] MEDS ORDERED: acetaminophen 325mg tablet PO PRN (15:05)
[2022-06-06] MEDS ORDERED: HYDROcodone/acetaminophen 5mg/325mg tablet PO PRN (15:05)
[2022-06-06] MEDS ORDERED: HYDR-3965 PO (15:10)
[2022-06-06] MEDS ORDERED: ACET-1008 PO (15:10)
[2022-06-06 15:30] VITALS: BP 145/48
[2022-06-06] MEDS ORDERED: CIPR-259 PO (16:38)
[2022-06-06] MEDS ORDERED: METR-159 PO (16:38)
--- NOTE | 2022-06-06 17:00 | NUR ---
Patient alert and orientated on discharged. Discharged papers given. Discharge instructions given to patient. Patient going home with the love per doctor Perez instructions. Patient given a night bag and day bag. IVL removed. Patient taken home by family.
== END 2022-06-06 17:01 | disposition home or self-care (01) | DRG 350 ==
LOC: PAS 05:41 → PCU 3S 19:17 → OBSVTOIN 06-06 09:00
PROVIDERS: ADMIT Internal Medicine; ATTEND Internal Medicine
PROC: 8E0W0CZ Robotic Assisted Procedure of Trunk Region, Open Approach (ICD-10-PCS; 2022-06-05)
PROC: 0YU60JZ Supplement Left Inguinal Region with Synthetic Substitute, Open Approach (ICD-10-PCS; principal; 2022-06-05 07:53)
DX: K40.90 Unilateral inguinal hernia, without obstruction or gangrene, not specified as recurrent (principal); I21.A1 Myocardial infarction type 2; E78.5 Hyperlipidemia, unspecified; I10 Essential (primary) hypertension; K21.9 Gastro-esophageal reflux disease without esophagitis; R00.0 Tachycardia, unspecified; R07.89 Other chest pain; R77.8 Other specified abnormalities of plasma proteins; N40.0 Benign prostatic hyperplasia without lower urinary tract symptoms; J45.909 Unspecified asthma, uncomplicated; I25.119 Atherosclerotic heart disease of native coronary artery with unspecified angina pectoris; I25.2 Old myocardial infarction; Z79.82 Long term (current) use of aspirin; Z79.899 Other long term (current) drug therapy; Z95.1 Presence of aortocoronary bypass graft; Z91.041 Radiographic dye allergy status; Z91.048 Other nonmedicinal substance allergy status
CPT/HCPCS: 36415; 80048; 80053; 81001; 82948; 83880; 84484; 85025; 87081; 93005; A4215; A4314; A4358; A4615; A4618; A6449; C1758; C1781; G0378; J0131; J0360; J0690; J1100; J1170; J2270; J2370; J2405; J2704; J2710; J3010; J3490; J7060; J7120